=== PATIENT | male | born 1990 | race Caucasian/White ===

== ENCOUNTER 2017-04-17 14:06 | Emergency (ER) | payer OTHER ==
[2017-04-17] MEDS: PERCOCET 5MG/325MG TAB PO (14:49)
== END 2017-04-17 16:01 | disposition home or self-care (01) ==
LOC: M ED 14:06
DX: S40.012A Contusion of left shoulder, initial encounter (principal); W19.XXXA Unspecified fall, initial encounter; Y92.9 Unspecified place or not applicable; Y93.23 Activity, snow (alpine) (downhill) skiing, snowboarding, sledding, tobogganing and snow tubing
CPT/HCPCS: 73000

== ENCOUNTER 2018-07-25 14:41 | Emergency (ER) | payer OTHER ==
[~2018-07-25] VITALS: Ht 175.3 cm; Wt 90.9 kg
[~2018-07-25 14:41] MED LIST: HYDR-3715 PO
[2018-07-25] MEDS ORDERED: OXYC1TAB23 (14:50)
[2018-07-25] MEDS ORDERED: XARE15TA (14:50)
[2018-07-25 16:13] LABS: HEMATOCRIT 51.8 % (42.0-52.0); HEMOGLOBIN 18.9 g/dl (13.5-17.5); MEAN CORPUSCULAR HEMOGLOBIN 31.4 pg (27.0-33.0); MEAN CORPUSCULAR HGB CONC 36.5 g/dl (32.0-36.5); MEAN CORPUSCULAR VOLUME 86.2 fl (80.0-96.0); PLATELET COUNT, AUTOMATED 254 10^3/uL (150-450); RED BLOOD COUNT 6.01 10^6/uL (4.30-6.10); WHITE BLOOD COUNT 6.3 10^3/uL (4.0-10.0)
--- NOTE | 2018-07-25 16:29 | REP ---
COMPLETE RIGHT KNEE, FIVE VIEWS: HISTORY: Rule out osteomyelitis. There is no acute fracture or dislocation. The joint spaces are normal in appearance. IMPRESSION:There is no acute fracture or dislocation. Electronically Signed by Obey Bah MD 07/25/2018 04:46 P
--- NOTE | 2018-07-25 16:41 | REP ---
Right lower extremity deep vein duplex ultrasound: There is nonocclusive thrombus in the anterior tibial vein. No other deep vein thrombus is identified in the right lower extremity. Impression: Anterior tibial vein nonocclusive thrombus. Electronically Signed by Mason Mcnally MD 07/25/2018 04:32 P
[2018-07-25 17:04] LABS: ERYTHROCYTE SEDIMENTATION RATE 3 mm/hr (0-15)
[2018-07-25 17:36] VITALS: BP 138/83
--- NOTE | 2018-07-25 21:23 | ED PDOC ---
Post-Departure Follow-Up dr potts faxed formal us report of right lower extrem us for fu Walter Salomon MD July 25, 2018 21:23
== END 2018-07-25 17:53 | disposition home or self-care (01) ==
LOC: M ED 14:41
DX: I82.441 Acute embolism and thrombosis of right tibial vein (principal); M76.52 Patellar tendinitis, left knee; Z86.718 Personal history of other venous thrombosis and embolism; Z79.01 Long term (current) use of anticoagulants